=== PATIENT | male | born 1965 | race Caucasian/White ===

== ENCOUNTER 2017-09-28 10:10 | Emergency (ER) | payer BC ==
[~2017-09-28] VITALS: Ht 182.9 cm; Wt 111.5 kg
[2017-09-28 10:12] VITALS: TEMP 36.4; Ht 182.9 cm; Wt 111.5 kg
[2017-09-28] MEDS ORDERED: CLINDAMYCIN HCL 150 MG CAP PO STA (11:26)
[2017-09-28] MEDS ORDERED: CLC/300 PO (11:27)
[2017-09-28] MEDS ORDERED: HYDR-5688 PO (11:27)
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
[2017-09-28 11:51] VITALS: BP 155/92; PULSE 84; O2SAT 94
== END 2017-09-28 11:52 | disposition home or self-care (01) ==
LOC: C.EDB 10:13 → C.EDC 11:52
DX: R51 Headache (principal)